=== PATIENT | male | born 1950 | race Caucasian/White ===

== ENCOUNTER 2018-02-20 13:16 | Emergency (ER) | payer MEDICARE ==
[~2018-02-20] VITALS: Ht 182.9 cm; Wt 77.4 kg
[~2018-02-20 13:16] MED LIST: CO Q100C9 PO; EYEDRO EACH EYE; FISH1000 PO; LUTE1TAB PO; MULT1TAB84 PO
[2018-02-20 13:19] VITALS: BP 138/80; PULSE 87; RESP 16; TEMP 98.3; O2SAT 96
[2018-02-20] MEDS ORDERED: LIDOCAINE HCL 1% PF 30 ML VIAL ONE (13:35)
[2018-02-20] MEDS ORDERED: LIDOCAINE HCL 1% 50 ML VIAL INFIL ONE (13:45)
[2018-02-20] MEDS ORDERED: TETANUS/DIPHTHERIA TOXOID ADULT 0.5 ML VIAL IM ONE (13:45)
--- NOTE | 2018-02-20 14:09 | PD ---
HPI Chief Complaint: Laceration/Skin Injury Time Seen by Provider: 13:26 Travel History International Travel<30 days: No Contact w/Intl Traveler<30days: No Traveled to known affect area: No History of Present Illness HPI This was a 68-year-old male here with a laceration to his right anterior thigh caused by a tile scraper. He accidentally cut the leg while scraping tile. Injury occurred prior to arrival. He denies altered sensation or weakness of the extremity. Bleeding is well controlled. Symptom severity is mild. No aggravating or alleviating factors. Tetanus immunization is not up-to-date [facility] Past Medical History Cancer: No Cardiovascular Problems: No COPD: Yes Diabetes: No Glaucoma: No Hepatitis: No Hiatal Hernia: No Hypertension: No Respiratory: Yes (COPD) Pneumonia: Yes Thyroid Disease: No ?: Not Past Surgical History Eye Surgery: Yes (RETINA SURGERY LEFT EYE) Oral Surgery: Yes (DENTAL IMPLANT) Pacemaker: No Tonsillectomy: Yes Other Surgery: Yes Social History Alcohol Use: No (QUIT AGE 64) Tobacco Use: Yes (1/2PPD) Substance Use: No Allergies-Medications (Allergen,Severity, Reaction): Coded Allergies: No Known Allergies (Verified Adverse Reaction, Unknown, 02/20/18) Reported Meds & Prescriptions Reported Meds & Active Scripts Active Reported [Eye Drops] 1 Drop EACH EYE BID Review of Systems Except as stated in HPI: all other systems reviewed are Neg Physical Exam Narrative GENERAL: Alert and well-appearing 68-year-old male SKIN: 2 cm laceration to the right anterior thigh. Bleeding is well controlled. No vascular tendon injury identified. No foreign body. HEAD: Normocephalic. EYES:No injection or drainage. NECK: Supple, trachea midline. CARDIOVASCULAR: Regular rate and rhythm without murmurs, gallops, or rubs. RESPIRATORY: Breath sounds equal bilaterally. No accessory muscle use. GASTROINTESTINAL: Abdomen soft, non-tender, nondistended. MUSCULOSKELETAL: No cyanosis, or edema. Normal strength and sensation in the lower extremities. Palpable DP pulses. Cap refill intact Data Data Last Documented VS Vital Signs Date Time Temp Pulse Resp B/P (MAP) Pulse Ox O2 Delivery O2 Flow Rate FiO2 02/20/18 13:19 98.3 87 16 138/80 (99) 96 Orders Orders Lidocaine 1% Inj (50 Ml) (Xylocaine 1% I (02/20/18 13:45) Tetanus/Diphtheria Tox Adult (Tetanus/Di (02/20/18 13:45) Lidocaine Pf 1% Inj (Xylocaine-Mpf 1% In (02/20/18 13:35) MDM Medical Decision Making Medical Screen Exam Complete: Yes Emergency Medical Condition: Yes Differential Diagnosis Laceration, tendon injury, retained foreign body Narrative Course 68-year-old male with a laceration to the right leg. Extremities neurovascularly intact. No tendon or vascular injury identified. No foreign body identified. Laceration repair performed by Mil [employer] medical student with my supervision. Procedures Procedure Narrative Laceration repair performed by [employer] medical student MIL under my supervision LACERATION LOCATION: Right thigh LENGTH: 2 cm NUMBER OF STITCHES/BLAKE: 4 REPAIR: The area of the laceration was prepped with Betadine and sterilely draped. The laceration was infiltrated with 1% lidocaine. The wound was copiously irrigated and explored without evidence of foreign body, tendon injury or neurovascular injury. The wound was closed using 4-0 Ethilon. This was a single layer repair. A sterile dressing was applied. The patient was advised to keep the dressing clean and dry. Patient tolerated the procedure well. Diagnosis Primary Impression: Laceration of right lower leg Qualified Codes: S81.811A - Laceration without foreign body, right lower leg, initial encounter Referrals: Primary Care Physician Additional Instructions: Sutures need to be removed in 7-10 days. Do not submerge the wound in water. You can shower daily and wash the wound with soap and water. Disposition: 01 DISCHARGE HOME Condition: Stable Carolina Navarro Feb 20, 2018 14:09
== END 2018-02-20 14:25 | disposition home or self-care (01) ==
LOC: PHEFT 13:16
DX: S71.111A Laceration without foreign body, right thigh, initial encounter (principal); J44.9 Chronic obstructive pulmonary disease, unspecified; F17.210 Nicotine dependence, cigarettes, uncomplicated; W27.8XXA Contact with other nonpowered hand tool, initial encounter; Z23 Encounter for immunization
CPT/HCPCS: 12001; 90471; 90714